=== PATIENT | male | born 1995 | race Caucasian/White ===

== ENCOUNTER 2016-09-14 13:48 | Emergency (ER) | payer BC ==
[~2016-09-14] VITALS: Ht 185.4 cm; Wt 84.5 kg
[2016-09-14 13:51] VITALS: BP 140/73; TEMP 98.4
[2016-09-14] MEDS ORDERED: ALLERGY PILL (13:54)
[2016-09-14 15:40] VITALS: PULSE 84
== END 2016-09-14 15:41 | disposition home or self-care (01) ==
LOC: COL.ER 13:48
DX: N50.89 Other specified disorders of the male genital organs (principal); N50.811 Right testicular pain